=== PATIENT | male | born 1995 | race Native Hawaiian/Other Pacific Islander ===

== ENCOUNTER 2018-08-11 18:48 | Emergency (ER) | payer OTHER ==
[~2018-08-11] VITALS: Ht 175.3 cm; Wt 72.6 kg
[2018-08-11 20:51] VITALS: BP 111/77; TEMP 98
== END 2018-08-11 20:50 | disposition home or self-care (01) ==
LOC: ED 18:48
DX: M54.32 Sciatica, left side (principal)
CPT/HCPCS: 96372; 99283; J1885

== ENCOUNTER 2020-01-13 21:28 | Emergency (ER) | payer OTHER ==
[~2020-01-13] VITALS: Ht 175.3 cm; Wt 83.5 kg
[2020-01-13 23:30] LABS: PLATELET COUNT 329 K/uL (142-355)
[2020-01-13 23:37] LABS: POTASSIUM 4.2 mmol/L (3.6-5.2)
[2020-01-14 01:24] VITALS: BP 122/74; TEMP 98.1
== END 2020-01-14 01:25 | disposition home or self-care (01) ==
LOC: ED 21:28
PROVIDERS: Family Medicine
DX: J02.0 Streptococcal pharyngitis (principal); J06.9 Acute upper respiratory infection, unspecified; Z20.828 Contact with and (suspected) exposure to other viral communicable diseases; F17.210 Nicotine dependence, cigarettes, uncomplicated
CPT/HCPCS: 80053; 82728; 85027; 85379; 87502; 87635; 87651; 99283; U0003